=== PATIENT | female | born 1970 | race Two or more races ===

== ENCOUNTER 2019-08-22 17:36 | Emergency (ER) | payer OTHER ==
[~2019-08-22] VITALS: Ht 152.4 cm; Wt 65.8 kg
--- NOTE | 2019-08-22 17:55 | NUR ---
DR LEON AT BEDSIDE FOR EVAL, CHAPERONED BY RN.
--- NOTE | 2019-08-22 18:09 | NUR ---
Patient discharged to home in stable conditon. Written and verbal after care instructions given. Patient verbalizes understanding of instructions.translation was provided by an employee.
[2019-08-24 09:01] LABS: HEPATITIS B SURFACE AB Reactive (.)
== END 2019-08-22 18:10 | disposition home or self-care (01) ==
LOC: ER 17:37
DX: R21 Rash and other nonspecific skin eruption (principal); F10.10 Alcohol abuse, uncomplicated; Z88.5 Allergy status to narcotic agent; Z77.21 Contact with and (suspected) exposure to potentially hazardous body fluids
CPT/HCPCS: 36415; 86704; 86706; 86803; 87806; A4663